=== PATIENT | male | born 1975 | race Two or more races ===

== ENCOUNTER 2024-11-17 10:01 | Emergency (ER) | payer SELFPAY ==
[~2024-11-17] VITALS: Ht 162.6 cm; Wt 66.7 kg
[2024-11-17] MEDS: LIDOCAINE 1% (LOCAL ANESTH.) PF 5ml SDV ID ONE (10:30)
--- NOTE | 2024-11-17 10:58 | DVH ---
EXAM: XY L 2ND FINGER XRAY CLINICAL INDICATION: TRAUMA TECHNIQUE: XY L 2ND FINGER XRAY Comparison: None FINDINGS/IMPRESSION: Diffuse soft tissue swelling. Nondisplaced fracture involving the distal phalanx of the 3rd digit
[2024-11-17 11:00] VITALS: PULSE 70; RESP 16; O2SAT 95
--- NOTE | 2024-11-17 13:02 | ED.PDOC ---
History of Present Illness HPI Comments This is a 49-year-old male who comes in with chief complaint of left index injury approximately 20 minutes prior to arrival. The patient was working on a job in accidentally cut his left finger. The patient has what seems to be a partial amputation of the tip of the left index finger. The patient denies any other complaints at this time. He was able to ambulate into the emergency department's. There is still some active bleeding on the finger. Chief Complaint: S/P AMPUTATION OF FINGER Time Seen by MD: 10:17 Reviewed Notes: Nurses Notes, Medications, Allergies (No allergies to medications) Allergies: Coded Allergies: NO KNOWN ALLERGIES (Unverified , 11/17/24) Home Meds Active Scripts Cephalexin (KEFLEX CAPSULE) 250 Mg Cp, 1 CAP PO QID, #40 CAP Prov:DANISH RIVERA MD 11/17/24 Information Source: Patient Mode of Arrival: Ambulatory Severity: Moderate Timing: Minutes Duration: Since onset Prehospital treatment: None Location: Left index partial amputation Past Medical History PAST MEDICAL HISTORY: Denies Surgical History: Denies all surgeries Family History Family History: Family hx of DM Social History Smoker: Non-Smoker Alcohol: Occasionally Drugs: Denies Drug Use Lives In: Home Constitutional: denies: chills, diaphoresis, fatigue, fever, malaise, sweats, weakness, others EENTM: denies: blurred vision, double vision, ear bleeding, ear discharge, ear drainage, ear pain, ear ringing, eye pain, eye redness, hearing loss, mouth pain, mouth swelling, nasal discharge, nose bleeding, nose congestion, nose pain, photophobia, tearing, throat pain, throat swelling, voice changes, others Respiratory: denies: cough, hemoptysis, orthopnea, SOB at rest, shortness of breath, SOB with excertion, stridor, wheezing, others Cardiovascular: denies: chest pain, dizzy spells, diaphoresis, Dyspnea on exertion, edema, irregular heart beat, left arm pain, lightheadedness, palpitations, PND, syncope, others Gastrointestinal: denies: abdomen distended, abdominal pain, blood streaked bowels, constipated, diarrhea, dysphagia, difficulty swallowing, hematemesis, melena, nausea, poor appetite, poor fluid intake, rectal bleeding, rectal pain, vomiting, others Genitourinary: denies: burning, dysuria, flank pain, frequency, hematuria, incontinence, penile discharge, penile sore, pain, testicle pain, testicle swelling, urgency, others Neurological: denies: dizziness, fainting, headache, left sided numbness, left sided weakness, numbness, paresthesia, pre-existing deficit, right sided numbness, right sided weakness, seizure, speech problems, tingling, tremors, weakness, others Musculoskeletal: reports: others (Left index partial amputation); denies: back pain, gout, joint pain, joint swelling, muscle pain, muscle stiffness, neck pain Integumetry: reports: laceration; denies: bruises, change in color, change in hair/nails, dryness, lesions, lumps, rash, wounds, others Allergic/Immunocompromised: denies: Difficulty Healing, Frequent Infections, Hives, Itching, others Hematologic/Lymphatic: denies: anemia, blood clots, easy bleeding, easy bruising, swollen glands, others Endocrine: denies: excessive hunger, excessive sweating, excessive thirst, excessive urination, flushing, intolerance to cold, intolerance to heat, unexplained weight gain, unexplained weight loss, others Psychiatric: denies: anxiety, bipolar disorder, depression, hopeless, panic disorder, schizophrenia, sleepless, suicidal, others Physical Exam General Appearance: Moderate Distress HEENT: Normal ENT Inspection, Pharynx Normal, TMs Normal Neck: Full Range of Motion, Non-Tender, Normal, Normal Inspection Respiratory: Chest Non-Tender, Lungs Clear, No Accessory Muscle Use, No Respiratory Distress, Normal Breath Sounds Cardiovascular: No Edema, No JVD, No Murmur, No Gallop, Normal Peripheral Pulses, Regular Rate/Rhythm Breast Exam: Deferred Gastrointestinal: No Organomegaly, Non Tender, No Pulsatile Mass, Normal Bowel Sounds, Soft Genitalia: Deferred Pelvic: Deferred Rectal: Deferred Extremities: No calf tenderness, Normal capillary refill, No pedal edema Musculoskeletal : Apperance: Normal Neurologic: Alert, card services specialist II-XII nml as Tested, No Motor Deficits, Normal Affect, Normal Mood, No Sensory Deficits Cerebellar Function: Normal Reflexes: Normal Skin: Dry, Normal Color, Warm, Other (Left index with partial amputation at the tip of the finger) Lymphatic: No Adenopathy Was a procedure done? Was a procedure done?: Yes Sedation Sedation?: No Laceration Repair : Location Left index finger of the distal portion measuring 5 cm Length 5 cm Anesthetic: Lidocaine Laceration Repair Prep: Saline Laceration Repair Wound Comple: epidermis/dermis repair Laceration Repair: Number of sutures (10 sutures), Layers Closed (1 L), Size (4 0 Ethilon), Nylon, Simple Informed consent obtained: Yes Risks, benefits, and alternati: Yes Differential Dx Considerations may include: Laceration , amputation X-Ray, Labs, Meds, VS Vital Signs Date Time Temp Pulse Resp B/P (MAP) Pulse Ox O2 Delivery O2 Flow Rate FiO2 11/17/24 12:00 97.9 63 16 116/64 (81) 96 97.9 11/17/24 11:00 70 16 95 Room Air* 0 21 11/17/24 10:47 70 16 95 Room Air 11/17/24 10:47 70 16 126/81 (96) 95 11/17/24 10:05 98.4 88 18 142/91 (108) 95 98.4 FINDINGS/IMPRESSION: Diffuse soft tissue swelling. Nondisplaced fracture involving the distal phalanx of the 3rd digit At this time, the patient was irrigated with normal saline The patient was then sutured with 10 sutures with no complications The patient was given Ancef 1 g IM The patient was given a Boostrix injection The patient is being discharged and splinted The patient will follow up with the primary care doctor The patient will return to the emergency department's the condition worsens. Images Reviewed?: Images reviewed and evaluated by me Time of 1ST Reevaluation: 13:39 Reevaluation 1ST: Improved Patient Education/Counseling: Diagnosis, Treatment, Prognosis, Need For Follow Up Family Education/Counseling: No Family Present Departure 1 Departure Time of Disposition: 13:40 Impression: Primary Impression: Phalanx, distal fracture of finger Qualified Codes: S62.661B - Nondisplaced fracture of distal phalanx of left index finger, initial encounter for open fracture Additional Impression: Finger laceration Qualified Codes: S61.211A - Laceration without foreign body of left index finger without damage to nail, initial encounter Disposition: 01 HOME / SELF CARE / HOMELESS Condition: Fair e-Prescriptions Cephalexin (KEFLEX CAPSULE) 250 Mg Cp 1 CAP PO QID, #40 CAP Prov: DANISH RIVERA MD 11/17/24 Discharged With: Self Critical Care Note Critical Care Time?: No Stability Stability form required: No Heart Score Heart Score: Heart Score Response (Comments) Value History N/A 0 EKG N/A 0 Age N/A 0 Risk Factors N/A 0 Troponin N/A 0 Total 0 I personally scribed for DANISH RIVERA MD ([email or web address]) on 11/17/24 at 13:38. Electronically submitted by Dave Gonzalez ([email or web address]). DANISH RIVERA MD November 17, 2024 13:02
[2024-11-17] MEDS ORDERED: CEPH250C PO (13:38)
[2024-11-17] MEDS: TETANUS-DIPTH-ACEL PERTUSSIS 0.5ML SYR Tdap IM ONE (14:40)
[2024-11-17] MEDS: ceFAZolin IM 1GM/2.5ML STERILE WATER IM ONE (15:02)
[2024-11-17 15:06] VITALS: BP 120/81; PULSE 73; RESP 16; TEMP 97.9; O2SAT 96
== END 2024-11-17 15:20 | disposition home or self-care (01) ==
LOC: ER 10:01
DX: S62.661A Nondisplaced fracture of distal phalanx of left index finger, initial encounter for closed fracture (principal); S61.211A Laceration without foreign body of left index finger without damage to nail, initial encounter; W26.9XXA Contact with unspecified sharp object(s), initial encounter; Y93.89 Activity, other specified; Y92.89 Other specified places as the place of occurrence of the external cause; Y99.0 Civilian activity done for income or pay
CPT/HCPCS: 12002; 29130; 73140; 90471; 90715; 96372; 99285; J0690